=== PATIENT | male | born 1960 | race African-American/Black ===

== ENCOUNTER 2024-04-25 22:23 | Inpatient (IN) | payer OTHER ==
[~2024-04-25] VITALS: Ht 188 cm; Wt 97.2 kg
[2024-04-25] MEDS: ACETAMINOPHEN 325MG TABLET PO STA (23:33)
[2024-04-25 23:50] LABS: BASOPHILS % 1.1 % (0.0-2.0); EOSINOPHILS % 1.9 % (0.0-5.0); HEMATOCRIT. 34.2 % (42.0-52.0); HEMOGLOBIN. 11.8 g/dL (14.0-18.0); MEAN CORPUSCULAR HEMOGLOBIN 31.9 pg (28.0-32.0); MEAN CORPUSCULAR HGB CONC 34.5 g/dL (31.0-37.0); MEAN CORPUSCULAR VOLUME 92.4 fL (80.0-94.0); MEAN PLATELET VOLUME 7.5 fl (7.4-10.4); MONOCYTES % 7.6 % (2.0-8.0); NEUTROPHILS % 63.4 % (40.0-76.0); PLATELET 255 x1000/uL (130-400); RED CELL DISTRIBUTION WIDTH 13.1 % (11.6-14.6); WHITE BLOOD COUNT 8.2 x1000/uL (4.5-11.0)
[2024-04-25 23:54] LABS: CHLORIDE 105 mEq/L (98-107); POTASSIUM 3.2 mEq/L (3.5-5.1); SODIUM 136 mEq/L (136-145)
[2024-04-25 23:55] LABS: CALCIUM 9.4 mg/dL (8.7-10.4); CARBON DIOXIDE 21 mEq/L (21-32)
[2024-04-26] LABS: CREATININE 1.6 mg/dL (0.6-1.3); GLUCOSE 111 mg/dL (70-105); UREA NITROGEN BLOOD 26 mg/dL (9-23)
[2024-04-26 00:01] LABS: INR 1.1
[2024-04-26 00:02] LABS: ETHANOL BLOOD < 10 mg/dL (<10); PHOSPHORUS 2.7 mg/dL (2.5-4.9); TROPONIN I HIGH SENSITIVITY 19 ng/L (3.0-53)
[2024-04-26 00:13] LABS: CREATINE KINASE 1780 IU/L (46-171)
[2024-04-26] MEDS: POTASSIUM CHLORIDE 20MEQ TABLET SR PO ONE (01:15)
[2024-04-26] MEDS: SODIUM CHLORIDE 0.9% 1,000 ML IV ONE (02:17)
[2024-04-26] MEDS: MAGNESIUM 1 G PREMIX 100 ML IV ONE (02:44)
[2024-04-26 12:00] VITALS: BP 108/74; PULSE 71; RESP 19; TEMP 36.61404; O2SAT 100
[2024-04-26 12:16] VITALS: BP 108/84; PULSE 71; RESP 19; TEMP 36.6404
[2024-04-26] MEDS ORDERED: ONDANSETRON HCL 4MG/2ML INJ IV PRN (14:00)
[2024-04-26] MEDS ORDERED: ACETAMINOPHEN 325MG TABLET PO PRN (14:00)
[2024-04-26] MEDS: THIAMINE HCL 100MG TABLET PO SCH (14:00)
[2024-04-26] MEDS ORDERED: LORAZEPAM 2MG/ML INJ IV PRN (14:00)
[2024-04-26 16:00] VITALS: BP 123/80; PULSE 68; RESP 20; TEMP 36.44736; O2SAT 100
[2024-04-26 20:00] VITALS: BP 98/61; PULSE 90; RESP 20; TEMP 36.61404; O2SAT 96
[2024-04-26] MEDS: FAMOTIDINE 20MG TABLET PO SCH (21:00)
[2024-04-26] MEDS ORDERED: FAMOTIDINE 20MG TABLET PO SCH (21:00)
[2024-04-26] MEDS: ACETAMINOPHEN 325MG TABLET PO PRN (23:15)
[2024-04-27] VITALS: BP 104/69; PULSE 77; RESP 20; TEMP 36.89184; O2SAT 98
[2024-04-27 04:00] VITALS: BP 104/75; PULSE 73; RESP 20; TEMP 35.89176; O2SAT 100
[2024-04-27 06:44] LABS: BASOPHILS % 0.8 % (0.0-2.0); EOSINOPHILS % 4.8 % (0.0-5.0); HEMATOCRIT. 31.3 % (42.0-52.0); HEMOGLOBIN. 10.5 g/dL (14.0-18.0); MEAN CORPUSCULAR HEMOGLOBIN 31.7 pg (28.0-32.0); MEAN CORPUSCULAR HGB CONC 33.6 g/dL (31.0-37.0); MEAN CORPUSCULAR VOLUME 94.3 fL (80.0-94.0); MEAN PLATELET VOLUME 7.7 fl (7.4-10.4); MONOCYTES % 5.9 % (2.0-8.0); NEUTROPHILS % 49.5 % (40.0-76.0); PLATELET 191 x1000/uL (130-400); RED BLOOD CELL COUNT 3.32 mill/uL (4.7-6.1); RED CELL DISTRIBUTION WIDTH 13.3 % (11.6-14.6); WHITE BLOOD COUNT 5.9 x1000/uL (4.5-11.0)
[2024-04-27 07:15] LABS: CARBON DIOXIDE 26 mEq/L (21-32); CHLORIDE 107 mEq/L (98-107); POTASSIUM 3.3 mEq/L (3.5-5.1); SODIUM 140 mEq/L (136-145)
[2024-04-27 07:16] LABS: CALCIUM 8.8 mg/dL (8.7-10.4)
[2024-04-27 07:21] LABS: CREATININE 0.9 mg/dL (0.6-1.3); GLUCOSE 127 mg/dL (70-105); UREA NITROGEN BLOOD 8 mg/dL (9-23)
[2024-04-27 07:22] LABS: CREATINE KINASE 729 IU/L (46-171)
[2024-04-27 07:23] LABS: PHOSPHORUS 2.5 mg/dL (2.5-4.9)
[2024-04-27 08:00] VITALS: BP 122/71; PULSE 71; RESP 18; TEMP 35.78064; O2SAT 100
[2024-04-27] MEDS: POTASSIUM CHLORIDE 20MEQ TABLET SR PO NR (10:32)
[2024-04-27 12:00] VITALS: BP 118/72; PULSE 73; RESP 16; TEMP 36.22512; O2SAT 100
[2024-04-27 16:00] VITALS: BP 112/68; PULSE 69; RESP 18; TEMP 35.78064; O2SAT 99
[2024-04-27 20:00] VITALS: BP 101/76; PULSE 76; RESP 18; TEMP 36.3918; O2SAT 98
[2024-04-28] VITALS: BP 108/70; PULSE 65; RESP 18; TEMP 36.33624; O2SAT 98
[2024-04-28 04:00] VITALS: BP 110/72; PULSE 70; RESP 18; TEMP 36.3918; O2SAT 98
[2024-04-28 08:00] VITALS: BP 126/85; PULSE 77; RESP 16; TEMP 36.28068; O2SAT 98
[2024-04-28 12:00] VITALS: BP 122/81; PULSE 75; RESP 18; TEMP 36.78072; O2SAT 100
[2024-04-28 16:00] VITALS: BP 118/78; PULSE 68; RESP 16; TEMP 36.3918; O2SAT 98
[2024-04-28 20:00] VITALS: BP 116/78; PULSE 79; RESP 18; TEMP 36.44736; O2SAT 100
[2024-04-29] VITALS: BP 110/72; PULSE 72; RESP 18; TEMP 36.33624; O2SAT 98
[2024-04-29 04:00] VITALS: BP 115/75; PULSE 71; RESP 20; TEMP 36.55848; O2SAT 100
[2024-04-29 08:00] VITALS: BP 110/73; PULSE 78; RESP 17; TEMP 36.89184; O2SAT 92
[2024-04-29 12:00] VITALS: BP 118/83; PULSE 95; RESP 17; TEMP 36.50292; O2SAT 97
[2024-04-29 13:35] VITALS: BP 118/83; PULSE 95; TEMP 97.7; O2SAT 97
== END 2024-04-29 13:30 | disposition home or self-care (01) | DRG 683 ==
LOC: ER 22:23 → 6EST 04-26 03:34 → EDBEDREQ 04-26 03:41 → ER 04-26 10:24
PROVIDERS: ADMIT Hospitalist; ATTEND Hospitalist
DX: N17.9 Acute kidney failure, unspecified (principal); M62.82 Rhabdomyolysis; Z59.01 Sheltered homelessness; M19.012 Primary osteoarthritis, left shoulder; E87.6 Hypokalemia; M19.011 Primary osteoarthritis, right shoulder; R10.9 Unspecified abdominal pain; E83.42 Hypomagnesemia; F17.210 Nicotine dependence, cigarettes, uncomplicated; N18.9 Chronic kidney disease, unspecified; M75.02 Adhesive capsulitis of left shoulder; Z20.822 Contact with and (suspected) exposure to COVID-19; Z79.899 Other long term (current) drug therapy
CPT/HCPCS: 36415; 71045; 80048; 80320; 82550; 83735; 83880; 84100; 84484; 85025; 87426; 93005; 99291; J3475; J7030; G0480